=== PATIENT | female | born 1950 ===

== ENCOUNTER 2024-08-10 09:23 | Inpatient (IN) ==
[2024-08-10] MEDS: 0.9 % SODIUM CHLORIDE 1,000 ML IV ONE (09:49)
[2024-08-10 10:47] LABS: Appearance,Urine Turbid (Clear); Bacteria,Urine Many /hpf (0); Bilirubin,Urine Negative (Negative); Color,Urine Yellow; Glucose,Urine (UA) Negative (Negative); Ketones,Urine Trace mg/dL (Negative); Leukocyte Esterase,Urine Small /uL (Negative); Nitrate,Urine Negative (Negative); PH,Urine 6.5 (5.0-9.0); Protein,Urine >=300 mg/dL (Negative); Specific Gravity,Urine 1.025 (1.000-1.035); Urine Blood Moderate ery/mcL (Negative); Urine Hyaline Cast 3 /lph (0-2); Urine RBC 6 /hpf (0-3); Urine Squamous Epithelial Cell 0 /hpf (0-4); Urine WBC > 182 /hpf (0-4); Urobilinogen,Urine Normal
[2024-08-10 11:08] LABS: ALT/SGPT 9 U/L (<40); AST/SGOT 33 U/L (<32); Albumin 3.7 gm/dL (3.2-5.2); Albumin/Globulin Ratio 0.9 (1.0-2.3); Alkaline Phosphatase 94 U/L (39-117); Bilirubin,Total 1.4 mg/dL (0.1-1.0); Blood Urea Nitrogen 32 mg/dL (8-23); Calcium 9.7 mg/dL (8.6-10.4); Carbon Dioxide 22 mmol/L (22-30); Chloride 98 mmol/L (96-108); Globulin 4.2 gm/dL (2.2-3.7); Glomerular Filtration Rate 41; Glucose 334 mg/dL (70-105); Potassium 4.1 mmol/L (3.3-5.1); Sodium 137 mmol/L (133-145)
[2024-08-10] MEDS: cefTRIAXone 1 GM VIAL IV ONE ×2 (11:39→16:35)
[2024-08-10 12:30] LABS: Basophils # (Auto) 0.04 K/mcL (0.00-0.30); Basophils % (Auto) 0.2 % (0.0-2.0); Eosinophils # (Auto) 0.02 K/mcL (0.00-0.70); Eosinophils % (Auto) 0.1 % (0.0-7.0); Hematocrit 37.5 % (34.1-44.9); Hemoglobin 11.5 g/dL (11.2-15.7); Lymphocytes # (Auto) 1.07 K/mcL (1.50-4.80); Lymphocytes % (Auto) 4.6 % (15.5-49.0); Mean Cell Volume 98.2 fL (80.0-100.0); Mean Corpuscular HGB Conc 30.7 g/dL (31.0-36.0); Mean Platelet Volume 12.5 fL (8.8-12.5); Monocytes # (Auto) 1.96 K/mcL (0.10-0.90); Monocytes % (Auto) 8.4 % (1.0-12.0); Neutrophils % (Auto) 86.1 % (38.0-78.0); Platelet Count 355 K/mcL (140-440); RBC 3.82 M/mcL (3.59-5.38); Red Cell Distribution Width 14.8 % (11.5-14.5); WBC 23.4 K/mcL (4.5-11.0)
[2024-08-10] MEDS ORDERED: DEXTROSE 31 GM ORAL.SUSP PO PRN (15:45)
[2024-08-10] MEDS ORDERED: ONDANSETRON 4 MG/2 ML VIAL IV PRN (15:45)
[2024-08-10] MEDS ORDERED: morphine 4 MG/ML VIAL IV PRN (15:45)
[2024-08-10] MEDS ORDERED: DEXTROSE 50% 50 ML VIAL IV PRN (15:45)
[2024-08-10] MEDS: 0.9 % SODIUM CHLORIDE 10 ML SYRINGE IV SCH (16:35)
[2024-08-10] MEDS: INSULIN LISPRO 1 UNIT/0.01 ML UNIT SQ SCH (16:41)
[2024-08-10] MEDS: ALBUTEROL SULFATE 60 PUFF INHALER INH SCH (19:11)
[2024-08-10] MEDS: BRIMONIDINE TIMOLOL OU SCH (19:12)
[2024-08-10] MEDS: SENNOSIDES 1 TABLET PO SCH (20:14)
[2024-08-10] MEDS: METOPROLOL SUCCINATE 25 MG TAB.XL.24H PO SCH (20:15)
[2024-08-10] MEDS: DOCUSATE SODIUM 100 MG CAPSULE PO SCH (20:15)
[2024-08-10] MEDS: ACETAMINOPHEN 325 MG TABLET PO PRN (20:15)
[2024-08-10] MEDS: APIXABAN 5 MG TABLET PO SCH (20:15)
[2024-08-11] MEDS: IPRATROPIUM/ALBUTEROL 3 ML AMPUL.NEB NEB PRN (04:33)
[2024-08-11 05:48] LABS: Basophils # (Auto) 0.02 K/mcL (0.00-0.30); Basophils % (Auto) 0.1 % (0.0-2.0); Eosinophils # (Auto) 0.02 K/mcL (0.00-0.70); Eosinophils % (Auto) 0.1 % (0.0-7.0); Hematocrit 34.1 % (34.1-44.9); Hemoglobin 10.7 g/dL (11.2-15.7); Lymphocytes # (Auto) 1.34 K/mcL (1.50-4.80); Lymphocytes % (Auto) 7.5 % (15.5-49.0); Mean Cell Volume 96.6 fL (80.0-100.0); Mean Corpuscular HGB Conc 31.4 g/dL (31.0-36.0); Mean Platelet Volume 11.4 fL (8.8-12.5); Monocytes # (Auto) 1.83 K/mcL (0.10-0.90); Monocytes % (Auto) 10.3 % (1.0-12.0); Neutrophils % (Auto) 81.6 % (38.0-78.0); Platelet Count 306 K/mcL (140-440); RBC 3.53 M/mcL (3.59-5.38); Red Cell Distribution Width 14.5 % (11.5-14.5); WBC 17.8 K/mcL (4.5-11.0)
[2024-08-11 06:21] LABS: ALT/SGPT 17 U/L (<40); AST/SGOT 29 U/L (<32); Albumin 3.3 gm/dL (3.2-5.2); Albumin/Globulin Ratio 0.9 (1.0-2.3); Alkaline Phosphatase 86 U/L (39-117); Bilirubin,Total 0.6 mg/dL (0.1-1.0); Blood Urea Nitrogen 26 mg/dL (8-23); Calcium 9.1 mg/dL (8.6-10.4); Carbon Dioxide 26 mmol/L (22-30); Chloride 101 mmol/L (96-108); Globulin 3.7 gm/dL (2.2-3.7); Glomerular Filtration Rate 64; Glucose 165 mg/dL (70-105); Potassium 3.2 mmol/L (3.3-5.1); Sodium 139 mmol/L (133-145)
[2024-08-11] MEDS: LEVOTHYROXINE 25 MCG TABLET PO SCH (07:25)
[2024-08-11 07:40] LABS: Estimated Average Glucose(eAG) 174 mg/dL; Hemoglobin A1C 7.7 % Hgb (4.0-6.0)
[2024-08-11] MEDS: ATORVASTATIN 40 MG TABLET PO SCH (08:20)
[2024-08-11] MEDS: HYDROCHLOROTHIAZIDE 25 MG TABLET PO SCH (08:20)
[2024-08-11] MEDS: cefTRIAXone 2 GM in DEXTROSE 5% IN WATER 50 ML IV SCH (08:22)
[2024-08-11] MEDS: POTASSIUM CHLORIDE 20 MEQ TABLET PO SCH (17:12)
[2024-08-11] MEDS: traZODone HCL 50 MG TABLET PO PRN (20:50)
[2024-08-11] MEDS: HYDROcodone/APAP 10/325MG TABLET PO PRN (20:53)
[2024-08-12] MEDS: oxyCODONE IR 5 MG TABLET PO PRN (05:08)
[2024-08-12 06:16] LABS: Basophils # (Auto) 0.05 K/mcL (0.00-0.30); Basophils % (Auto) 0.4 % (0.0-2.0); Eosinophils # (Auto) 0.17 K/mcL (0.00-0.70); Eosinophils % (Auto) 1.3 % (0.0-7.0); Hematocrit 35.3 % (34.1-44.9); Hemoglobin 10.9 g/dL (11.2-15.7); Lymphocytes # (Auto) 1.74 K/mcL (1.50-4.80); Lymphocytes % (Auto) 13.1 % (15.5-49.0); Mean Cell Volume 96.7 fL (80.0-100.0); Mean Corpuscular HGB Conc 30.9 g/dL (31.0-36.0); Mean Platelet Volume 11.9 fL (8.8-12.5); Monocytes % (Auto) 12.8 % (1.0-12.0); Neutrophils % (Auto) 72.1 % (38.0-78.0); Platelet Count 351 K/mcL (140-440); RBC 3.65 M/mcL (3.59-5.38); Red Cell Distribution Width 14.5 % (11.5-14.5); WBC 13.3 K/mcL (4.5-11.0)
[2024-08-12 06:25] LABS: ALT/SGPT 91 U/L (<40); AST/SGOT 114 U/L (<32); Albumin 3.2 gm/dL (3.2-5.2); Albumin/Globulin Ratio 0.8 (1.0-2.3); Alkaline Phosphatase 117 U/L (39-117); Bilirubin,Total 0.5 mg/dL (0.1-1.0); Blood Urea Nitrogen 23 mg/dL (8-23); Calcium 9.1 mg/dL (8.6-10.4); Carbon Dioxide 26 mmol/L (22-30); Chloride 100 mmol/L (96-108); Globulin 3.8 gm/dL (2.2-3.7); Glomerular Filtration Rate 73; Glucose 194 mg/dL (70-105); Potassium 3.2 mmol/L (3.3-5.1); Sodium 139 mmol/L (133-145)
[2024-08-12] MEDS: tiZANidine 4 MG TABLET PO PRN (08:15)
[2024-08-13 06:18] LABS: Basophils # (Auto) 0.08 K/mcL (0.00-0.30); Basophils % (Auto) 0.6 % (0.0-2.0); Eosinophils # (Auto) 0.31 K/mcL (0.00-0.70); Eosinophils % (Auto) 2.4 % (0.0-7.0); Hematocrit 36.6 % (34.1-44.9); Hemoglobin 11.7 g/dL (11.2-15.7); Lymphocytes # (Auto) 2.75 K/mcL (1.50-4.80); Lymphocytes % (Auto) 20.9 % (15.5-49.0); Mean Cell Volume 94.3 fL (80.0-100.0); Mean Platelet Volume 12.1 fL (8.8-12.5); Monocytes # (Auto) 1.49 K/mcL (0.10-0.90); Monocytes % (Auto) 11.3 % (1.0-12.0); Platelet Count 399 K/mcL (140-440); RBC 3.88 M/mcL (3.59-5.38); Red Cell Distribution Width 14.4 % (11.5-14.5); WBC 13.2 K/mcL (4.5-11.0)
[2024-08-13 06:40] LABS: ALT/SGPT 132 U/L (<40); AST/SGOT 117 U/L (<32); Albumin 3.6 gm/dL (3.2-5.2); Albumin/Globulin Ratio 0.9 (1.0-2.3); Alkaline Phosphatase 143 U/L (39-117); Bilirubin,Total 0.4 mg/dL (0.1-1.0); Blood Urea Nitrogen 27 mg/dL (8-23); Calcium 9.4 mg/dL (8.6-10.4); Carbon Dioxide 27 mmol/L (22-30); Chloride 97 mmol/L (96-108); Glomerular Filtration Rate 73; Glucose 171 mg/dL (70-105); Potassium 3.5 mmol/L (3.3-5.1); Sodium 137 mmol/L (133-145)
[2024-08-14 06:52] LABS: Basophils # (Auto) 0.07 K/mcL (0.00-0.30); Basophils % (Auto) 0.5 % (0.0-2.0); Eosinophils # (Auto) 0.33 K/mcL (0.00-0.70); Eosinophils % (Auto) 2.4 % (0.0-7.0); Hematocrit 36.3 % (34.1-44.9); Hemoglobin 11.3 g/dL (11.2-15.7); Lymphocytes # (Auto) 2.97 K/mcL (1.50-4.80); Lymphocytes % (Auto) 21.8 % (15.5-49.0); Mean Corpuscular HGB Conc 31.1 g/dL (31.0-36.0); Mean Platelet Volume 11.5 fL (8.8-12.5); Monocytes # (Auto) 1.33 K/mcL (0.10-0.90); Monocytes % (Auto) 9.8 % (1.0-12.0); Neutrophils % (Auto) 64.5 % (38.0-78.0); Platelet Count 420 K/mcL (140-440); RBC 3.78 M/mcL (3.59-5.38); Red Cell Distribution Width 14.3 % (11.5-14.5); WBC 13.6 K/mcL (4.5-11.0)
[2024-08-14 07:20] LABS: ALT/SGPT 101 U/L (<40); AST/SGOT 58 U/L (<32); Albumin 3.5 gm/dL (3.2-5.2); Alkaline Phosphatase 126 U/L (39-117); Bilirubin,Total 0.3 mg/dL (0.1-1.0); Blood Urea Nitrogen 24 mg/dL (8-23); Calcium 9.2 mg/dL (8.6-10.4); Carbon Dioxide 28 mmol/L (22-30); Chloride 98 mmol/L (96-108); Globulin 3.6 gm/dL (2.2-3.7); Glomerular Filtration Rate 73; Glucose 187 mg/dL (70-105); Potassium 3.9 mmol/L (3.3-5.1); Sodium 139 mmol/L (133-145)
== END 2024-08-14 12:30 | disposition home or self-care (01) | DRG 872 ==
LOC: ED 09:23 → MEDSUR 14:53
PROVIDERS: ADMIT Internal Medicine; ATTEND Internal Medicine